=== PATIENT | male | born 1960 | race Caucasian/White ===

== ENCOUNTER 2024-04-10 08:00 | Inpatient (IN) | payer MEDICARE, OTHER, SELFPAY ==
[2024-04-08 14:18] VITALS: BP 162/92
[2024-04-08 15:32] VITALS: BP 146/85; BMI 30.3
[2024-04-08] MEDS: NSS 1000 IV (15:42)
[2024-04-08 15:51] LABS: % Basophils 0.3 % (0-2); % Eosinophils 0.2 % (0-6); % Immature Granulocytes 0.4 % (0-0.5); % Monocytes 4.9 % (1.7-9.3); % Neutrophils 86.2 % (42.2-75.2); Absolute Immature Granulocytes 0.1 10^3/uL (0-0.05); Absolute Lymphocytes 1.1 10^3/uL (1.2-3.4); Absolute Monocytes 0.7 10^3/uL (0.1-0.6); Absolute Neutrophils 11.8 10^3/uL (1.4-6.5); Hematocrit 44.2 % (39.0-52.0); Hemoglobin 15.7 g/dL (13.0-18.0); Mean Corp Hgb Conc. 35.5 g/dL (33.0-37.0); Mean Corpuscular Hgb 31.8 pg (27.0-31.0); Mean Corpuscular Volume 89.5 fL (80.0-94.0); Mean Platelet Volume 9.9 fL (7.4-10.4); Nucleated Red Blood Cells % 0 % (-); Platelet Count 198 10^3/uL (130-400); Red Blood Cell Count 4.94 10^6/uL (4.70-6.10); Red Cell Dist. Width 12.8 % (11.5-14.5); White Blood Cell Count 13.7 10^3/uL (4.8-10.8)
[2024-04-08 16:03] LABS: Lactic Acid 1.3 mmol/L (0.7-2.0)
[2024-04-08 16:11] LABS: ALT (SGPT) 30 U/L (0-50); AST (SGOT) 26 U/L (17-59); Albumin 3.9 g/dl (3.5-5.0); Alkaline Phosphatase 56 U/L (38-126); Blood Urea Nitrogen 26 mg/dl (9-20); Calcium 9.5 mg/dl (8.4-10.2); Carbon Dioxide 23 mmol/L (22-30); Chloride 104 mmol/L (98-107); Estimated Creatinine Clearance 80 ml/min; Glucose 107 mg/dl (70-99); Potassium 4.4 mmol/L (3.5-5.1); Sodium 138 mmol/L (135-145); Total Bilirubin 2.7 mg/dl (0.2-1.3); Total Protein 6.7 g/dl (6.3-8.2); eGFR > 60.00
--- NOTE | 2024-04-08 16:43 | ED.GENMED ---
History of Present Illness
<Jeffry Gaston Jr., PA-C - Last Filed: 04/08/24 19:14>
General
Chief Complaint: Musculo-Skeletal Complaint
Source: patient
Exam Limitations: none
Time Seen by Provider: 04/08/24 15:06
Nursing documentation reviewed up to this point in time: agreed with
Travel History
Have you had any contact with someone who has COVID-19?: No
Do you have any symptoms of coronavirus? Fever > 100 degrees, chills, cough, shortness of breath, sore throat, loss of taste or smell, muscle aches, or headache?: No
History of Present Illness
History of Present Illness:
63-year-old male past medical history of hypertension hyperlipidemia presenting to the emergency department today with concerns of redness swelling and warmth to the right leg starting over the past day. Had an episode of vomiting which is since
resolved but noticed worsening redness and swelling. Also noticed a fever yesterday. No ongoing vomiting.
Review of Systems
<Jeffry Gaston Jr., PA-C - Last Filed: 04/08/24 19:14>
Review of Systems
Allergies reviewed?: Yes
All Other Systems: ROS reviewed and negative except as documented in HPI and ROS
Phy Exam
<Jeffry Gaston Jr., PA-C - Last Filed: 04/08/24 19:14>
Physical Exam
Physical Exam:
GENERAL: Alert , in no apparent distress
EYE: pupils equal and reactive
NECK: Supple, no significant adenopathy.
ENT: o/p clr, mmm.
CARDIAC: Regular rate and rhythm .
LUNGS: Clear breath sounds bilaterally, no acute respiratory distress, no wheezes/rales/rhonchi
ABDOMEN: Soft, without focal tenderness, no r/g, no cvat
NEUROLOGICAL: Alert and oriented, no focal neuro deficits
SKIN: Circumscribed redness swelling warmth without fluctuance or induration to the right daniels that encompasses majority of the area between the knee and the ankle it does not cross the joint. Upon arrival borderline tachycardia of 100 afebrile
repeated temperature of nine 9.4 but heart rate improving after receiving fluids white blood cell count of 13.7. Lactic acid normal level. Warm and dry, skin intact.
MUSCULOSKELETAL: No edema, well perfused.
PSYCH: Normal and appropriate interaction.
Course
<Jeffry Gaston Jr., BIJU - Last Filed: 04/08/24 19:14>
Orders/Labs/Results
Orders:
Orders
04/08/24 14:17
US Periph Venous LOWER Ext RT Urgent
Comment:
Reason For Exam: redness, swelling
04/08/24 15:34
0.9% Sodium Chloride 1000 ml [Nss] 1,000 ml IV BOLUS
CR Leg Tibia/fibula Right 2 Vw Urgent
Comment:
Reason For Exam: right daniels swelling pain
04/08/24 15:39
CBC/With Diff [Complete Blood Count/With Diff] Urgent
CMP [Comprehensive Metabolic Panel] Urgent
Lactic Acid Urgent
Blood Culture Q1M
YIFAN Source: Blood/Venous
Specimen Description:
Blood Culture Q1M
YIFAN Source: Blood/Venous
Specimen Description:
04/08/24 16:34
CeFAZolin 2 GRAM [Ancef] 2 grams in 10 ml IV NOW
Abnormal Lab Results
04/08/24
15:39
WBC 13.7 H 10^3/uL
(4.8-10.8)
MCH 31.8 H pg
(27.0-31.0)
Abs Immat Gran (auto) 0.1 H 10^3/uL
(0-0.05)
Absolute Neuts (auto) 11.8 H 10^3/uL
(1.4-6.5)
Absolute Lymphs (auto) 1.1 L 10^3/uL
(1.2-3.4)
Absolute Monos (auto) 0.7 H 10^3/uL
(0.1-0.6)
Neutrophils % 86.2 H %
(42.2-75.2)
Lymphocytes % 8.0 L %
(20.5-51.1)
BUN 26 H mg/dl
(9-20)
Glucose 107 H mg/dl
(70-99)
Total Bilirubin 2.7 H mg/dl
(0.2-1.3)
04/08/24 15:39
04/08/24 15:39
Vital Signs
Initial and Last Documented VS:
Initial Vital Signs
Temp Pulse Resp BP Pulse Ox
98.2 F 100 17 162/92 98
04/08/24 14:18 04/08/24 14:18 04/08/24 14:18 04/08/24 14:18 04/08/24 14:18
Last Documented Vital Signs
Temp Pulse Resp BP Pulse Ox
99.5 F 87 18 137/80 99
04/08/24 17:46 04/08/24 17:46 04/08/24 17:46 04/08/24 17:46 04/08/24 17:46
<Jerel Foy MD - Last Filed: 04/08/24 18:19>
Orders/Labs/Results
Orders:
Orders
04/08/24 14:17
US Periph Venous LOWER Ext RT Urgent
Comment:
Reason For Exam: redness, swelling
04/08/24 15:34
0.9% Sodium Chloride 1000 ml [Nss] 1,000 ml IV BOLUS
CR Leg Tibia/fibula Right 2 Vw Urgent
Comment:
Reason For Exam: right daniels swelling pain
04/08/24 15:39
CBC/With Diff [Complete Blood Count/With Diff] Urgent
CMP [Comprehensive Metabolic Panel] Urgent
Lactic Acid Urgent
Blood Culture Q1M
YIFAN Source: Blood/Venous
Specimen Description:
Blood Culture Q1M
YIFAN Source: Blood/Venous
Specimen Description:
04/08/24 16:34
CeFAZolin 2 GRAM [Ancef] 2 grams in 10 ml IV NOW
Abnormal Lab Results
04/08/24
15:39
WBC 13.7 H 10^3/uL
(4.8-10.8)
MCH 31.8 H pg
(27.0-31.0)
Abs Immat Gran (auto) 0.1 H 10^3/uL
(0-0.05)
Absolute Neuts (auto) 11.8 H 10^3/uL
(1.4-6.5)
Absolute Lymphs (auto) 1.1 L 10^3/uL
(1.2-3.4)
Absolute Monos (auto) 0.7 H 10^3/uL
(0.1-0.6)
Neutrophils % 86.2 H %
(42.2-75.2)
Lymphocytes % 8.0 L %
(20.5-51.1)
BUN 26 H mg/dl
(9-20)
Glucose 107 H mg/dl
(70-99)
Total Bilirubin 2.7 H mg/dl
(0.2-1.3)
04/08/24 15:39
04/08/24 15:39
Vital Signs
Initial and Last Documented VS:
Initial Vital Signs
Temp Pulse Resp BP Pulse Ox
98.2 F 100 17 162/92 98
04/08/24 14:18 04/08/24 14:18 04/08/24 14:18 04/08/24 14:18 04/08/24 14:18
Last Documented Vital Signs
Temp Pulse Resp BP Pulse Ox
99.5 F 87 18 137/80 99
04/08/24 17:46 04/08/24 17:46 04/08/24 17:46 04/08/24 17:46 04/08/24 17:46
<Jeffry Gaston Jr., PA-C - Last Filed: 04/08/24 19:14>
MDM/Problems Addressed
MDM/Problems Addressed:
63-year-old male presenting to the emergency department today with concerns of redness swelling as well as discomfort to the right lower extremity no specific injuries to the area. Walkabout redness and swelling to the right lower leg does not
cross the joint for count of 13.7 heart rate improving after receiving fluids normal lactic acid ultrasound and x-ray without emergent findings concerning the large area and rapid progression of potential cellulitis plan to give IV antibiotics and
monitor in the hospital.
<Jeffry Gaston Jr., PA-C - Last Filed: 04/08/24 19:14>
*Critical Care Note
Total Time (30-74mins, 75-104mins- exclusive of procedures): Not Applicable
ED Attending Note
<Jeffry Gaston Jr., PA-C - Last Filed: 04/08/24 19:14>
-
Portions of this chart may have been created with voice recognition software.� Occasional wrong word or��sound alike� substitutions may have occurred due to the inherent limitations of voice recognition software.
<Jerel Foy MD - Last Filed: 04/08/24 18:19>
ED Attending Note
Patient seen and examined by attending physician: Yes
ED Attending Note:
I have seen and evaluated the patient with a [id number] encounter. I have spoken to the advance practicer provider and involved in the medical history, the physical exam, medical decision making.
Evaluation and management service: agree unless noted differently below.
Results interpretation: agree unless noted differently below.
Focused HPI: 63-year-old male with a past medical history of hypertension, hyperlipidemia who presents to the emergency room with his for evaluation of right lower extremity redness, swelling, pain. Patient reports that he noticed some slight
swelling about 2 days ago, yesterday noticed some small area of redness on the right leg and then today had markedly increased redness and pain. He says yesterday had a low-grade fever. He denies any other complaints. He denies any trauma or
injury to the leg. Apparently has a remote history of DVT, not on blood thinners.
Physical exam: Awake alert not in distress. Hypertensive and tachycardic on arrival but vitals normal on my assessment. He has erythema extending from the tibial tuberosity down just proximal to the ankle on the right leg mostly anterior although
there is some erythema tracking laterally towards the posterior aspect of the calf. Area is warm and tender to the touch but there is no crepitus or induration. He has good strong pulses in the right lower extremity. No knee effusion noted.
Medical Decision Makin-year-old male presents for evaluation of redness, pain, swelling of the right lower extremity in the absence of trauma. Vitals and exam as above. Recent labs including a CBC which showed a leukocytosis to 13.7 with
predominant neutrophils. CMP showed no clinically significant abnormalities. We sent patient for an ultrasound to rule out DVT which was negative. We did send for an x-ray of tib-fib which showed no acute pathology. Concern for severe cellulitis
and given relatively rapid progression will cover with IV antibiotics and admit for management.
Discharge Plan
Departure
Patient Disposition: Admit
Date of Disposition: 04/08/24
Time of Disposition: 19:14
Admit to: Med/Surg
Admit to doctor: Dang
Presentation/result/management discussed w/ accepting MD/DO: Hospitalist
Patient with high blood pressure during this ER visit?: No
Condition: Good
Covid-19: Not Applicable
Discharge Problem:
Cellulitis
Prescriptions:
No Action
tamsulosin [Flomax] 0.4 mg Capsule
0.4 mg PO DAILY
simvastatin 20 mg Tablet
20 mg PO DAILY
finasteride 5 mg Tablet
5 mg PO DAILY
amlodipine-benazepril 10-40 mg Capsule
1 cap PO DAILY
Referrals:
Frank Fall MD [Family Provider] -
Interventions
Interventions:
*Risk Screen - Suicide Last Done: 04/08/24 14:19
*General Assessment Last Done: 04/08/24 14:19
*Neglect/Abuse Screening Last Done: 04/08/24 14:19
*ED COVID-19 Vaccine History Last Done: 04/08/24 14:19
ED-Musculoskeletal Assessment Last Done: 04/08/24 15:33
Discharge Date and Time
Print Language: INDONESIAN
[2024-04-08] MEDS: ANCEF 10 IV (16:59)
[2024-04-08 17:46] VITALS: BP 137/80
--- NOTE | 2024-04-08 18:37 | HPS.HSE ---
Family Physician
-
Family Physician: Frank Fall
Chief Complaint
-
Fever and right leg redness
History of Present Illness
63 y/o male with past medical history of hypertension, hyperlipidemia, BPH, right ankle surgery, and right lower extremity DVT presented with right leg redness starting around lunchtime yesterday. Patient reported fever of 101 F, as well as chills,
at home, and also said he felt a little lightheaded. He had nausea, vomiting and diarrhea all of which resolved yesterday. He denied any pain whatsoever, and reports he has no trouble ambulating.
Medical History
Past Medical History
Past Medical History: Reports Other (As per HPI above)
Past Surgical History: Reports Orthopedic (Right Ankle Surgery)
Social History
Tobacco: Non-smoker
Alcohol: None
Drug: None
Family History
Family History: Not pertinent
Allergies / Home Medications
Allergies reflects when Allergies were last updated in [facility].
Home Medications with original date entered in [facility]
Allergy/Medication List:
Allergies
Allergy/AdvReac Type Severity Reaction Status Date / Time
bacitracin Allergy Unknown Verified 04/08/24 14:18
[From Polysporin(bacitracin
base)]
polymyxin B Allergy Unknown Verified 04/08/24 14:18
[From Polysporin(bacitracin
base)]
Home Medications
amlodipine 10 mg-benazepril 40 mg capsule 1 cap PO DAILY 04/08/24
esomeprazole magnesium 20 mg capsule,delayed release (Nexium) 20 mg PO DAILY 04/08/24
finasteride 5 mg tablet 5 mg PO DAILY 04/08/24
simvastatin 20 mg tablet 20 mg PO DAILY 04/08/24
tamsulosin 0.4 mg capsule (Flomax) 0.4 mg PO DAILY 04/08/24
Review of Systems
-
A 12 point ROS was completed and negative except as noted: Yes
Physical Exam
Vital Signs
Vital Signs
Temp Pulse Resp BP Pulse Ox
99.5 F 87 18 137/80 99
04/08/24 17:46 04/08/24 17:46 04/08/24 17:46 04/08/24 17:46 04/08/24 17:46
Physical Exam
General: No Apparent Distress, Comfortable and Conversant
HEENT: NormoCephalic and Moist mucous membranes
Respiratory: Clear
Cardiac: S1/S2 and Regular Rhythm
GI: Soft, Non Tender and Normal Bowel Sounds
Skin: Other (Right lower extremity erythema on daniels and partly on calf. No purulence. No tenderness. RLE distal pulses 2+.)
Neuro: Awake, Alert, AO x 3 and Nonfocal/grossly intact
Psych: Calm and Intact Judgment/Insight
Laboratory Results
-
04/08/24 15:39
04/08/24 15:39
Laboratory Results
Lactic Acid 1.3 mmol/L (0.7-2.0) 04/08/24 15:39
Total Bilirubin 2.7 mg/dl (0.2-1.3) H 04/08/24 15:39
AST 26 U/L (17-59) 04/08/24 15:39
ALT 30 U/L (0-50) 04/08/24 15:39
Alkaline Phosphatase 56 U/L (38-126) 04/08/24 15:39
Impression/Plan
-
Assessment/Plan
RLE cellulitis
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
-Continue Cefazolin
-Check MRSA, follow blood cultures
-US with no DVT
-X-Ray with no acute changes but did show old fracture
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
-Had these symptoms on the day prior to arrival
-Such symptoms have now resolved
-Continue to monitor
Hypertension
-Continue home Amlodipine-Benazepril
Hyperlipidemia
-Continue home Simvastatin or equivalent
BPH
-Continue Finasteride and Tamsulosin
History of RLE DVT
History of Right Ankle Surgery
DVT PPx: Lovenox
Code Status: Full Code
[2024-04-08 20:16] VITALS: BP 161/90
--- NOTE | 2024-04-08 20:24 | EDRN ---
Pt with temperature of 101.6 when sending patient upstairs to Rm [id number]. No PRN order for Tylenol seen in patients chart. SAM Balderas notified via [employer], will place Tylenol order. Pt sent to floor, 3W staff made aware.
[2024-04-08 20:36] VITALS: BP 176/95; BMI 31.2
[2024-04-08] MEDS: TYLENOL 650 MG PO (20:39)
[2024-04-08] MEDS: LOVENOX 40 MG SC (21:02)
[2024-04-08 23:00] VITALS: BP 130/86
[2024-04-08] MEDS: ANCEF 5 IV (23:00)
[2024-04-09] MEDS: TYLENOL 650 MG PO ×3 (05:14→20:07)
[2024-04-09 06:33] LABS: % Basophils 0.2 % (0-2); % Immature Granulocytes 0.5 % (0-0.5); % Neutrophils 88.3 % (42.2-75.2); Absolute Immature Granulocytes 0.1 10^3/uL (0-0.05); Absolute Lymphocytes 0.7 10^3/uL (1.2-3.4); Absolute Monocytes 0.6 10^3/uL (0.1-0.6); Absolute Neutrophils 10.5 10^3/uL (1.4-6.5); Hematocrit 44.8 % (39.0-52.0); Hemoglobin 15.4 g/dL (13.0-18.0); Mean Corp Hgb Conc. 34.4 g/dL (33.0-37.0); Mean Corpuscular Hgb 31.5 pg (27.0-31.0); Mean Corpuscular Volume 91.6 fL (80.0-94.0); Mean Platelet Volume 10.8 fL (7.4-10.4); Nucleated Red Blood Cells % 0 % (-); Platelet Count 184 10^3/uL (130-400); Red Blood Cell Count 4.89 10^6/uL (4.70-6.10); Red Cell Dist. Width 12.8 % (11.5-14.5); White Blood Cell Count 11.9 10^3/uL (4.8-10.8)
[2024-04-09 07:03] LABS: Blood Urea Nitrogen 18 mg/dl (9-20); Calcium 8.7 mg/dl (8.4-10.2); Carbon Dioxide 21 mmol/L (22-30); Chloride 107 mmol/L (98-107); Estimated Creatinine Clearance 105 ml/min; Glucose 111 mg/dl (70-99); Potassium 4.1 mmol/L (3.5-5.1); Sodium 135 mmol/L (135-145); eGFR > 60.00
[2024-04-09 07:20] VITALS: BP 148/88
[2024-04-09] MEDS: ANCEF 5 IV (08:07)
[2024-04-09] MEDS: NORVASC 10 MG PO (08:08)
[2024-04-09] MEDS: LIPITOR 10 MG PO (08:08)
[2024-04-09] MEDS: PROSCAR 5 MG PO (08:08)
[2024-04-09] MEDS: PROTONIX 40 MG PO (08:08)
[2024-04-09] MEDS: ZESTRIL 10 MG PO (08:08)
[2024-04-09] MEDS: FLOMAX 0.400000000000000022 MG PO (08:08)
--- NOTE | 2024-04-09 13:33 | W.PN.HOSP.TC ---
Today's Communication/Plan
-
see A/P
Assessment / Plan
Assessment / Plan
HPI: 63 y/o male with past medical history of hypertension, hyperlipidemia, BPH, right ankle surgery, and right lower extremity DVT; presented with right leg redness. Patient reported fever of 101 F, as well as chills at home, and also said he felt
a little lightheaded. He had nausea, vomiting and diarrhea all of which resolved. He denied any pain, reported no trouble ambulating.
A/P:
# sepsis POA due to RLE cellulitis
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
RLE US neg for DVT
X-Ray with no acute changes but did show old fracture
Continue Cefazolin
follow blood cultures
# Nausea/Vomiting/Diarrhea likely related to sepsis, resolved
# Hypertension
Continue home Amlodipine-Benazepril
# Hyperlipidemia
Continue home Simvastatin or equivalent
# BPH
Continue Finasteride and Tamsulosin
# History of RLE DVT
# History of Right Ankle Surgery
DVT PPx: Lovenox
Code Status: Full Code
Anticipated Discharge: Within 24 hours
Subjective/Interval History
-
Date of Service: April 09, 2024
Objective Data
-
Labs:
Laboratory Results
04/09/24
05:11
WBC 11.9 H
Hgb 15.4
Hct 44.8
Plt Count 184
Sodium 135
Potassium 4.1
Chloride 107
Carbon Dioxide 21 L
BUN 18
Creatinine 0.9
Glucose 111 H
Calcium 8.7
Vital Signs:
Vital Signs
Temp Pulse Resp BP Pulse Ox
37.1 C 95 16 148/88 92
04/09/24 07:20 04/09/24 07:20 04/09/24 07:20 04/09/24 07:20 04/09/24 07:20
I&O
04/08/24 04/09/24 04/10/24
06:59 06:59 06:59
Intake Total 480 / 480 960 / 960
Balance 480 / 480 960 / 960
Review of Systems
-
Skin: Reports Rash (RLE )
Physical Exam
-
General: Well Developed, Well Nourished, No Apparent Distress, Comfortable and Conversant; Negative Respiratory Distress
HEENT: Normocephalic, Atraumatic, Nose Appears Normal and Ears Appear Normal; Negative Oxygen
Respiratory: Clear to Auscultation and Non Labored Respirations; Negative Accessory Resp Muscle Use
Cardiac: Regular Rhythm and S1/S2
GI: Soft, Nontender, Nondistended and Normal Bowel Sounds
Musculoskeletal: Edema, Right Lower Extrem
Skin: Warm, Dry and Other (RLE erythema)
Neuro: Awake and Alert
Psych: Calm and Intact Judgement/Insight
Data Reviewed
-
Ultrasound: Report Reviewed by me
Labs: Labs Reviewed by me
--- NOTE | 2024-04-09 15:22 | WOUNDNOTE ---
JASPER RN note: Patient admitted with Cellulitis of R leg.
See H&P for complete history.
PMH: R ankle surgery 2016, DVT,HTN.
Wound Location and type/assessment: Patient admitted with: R lower leg with resolving redness and edema. + pulses audible with Doppler. Leg elevated on pillow. Heels intact, no wounds on R leg.
Appetite: Good.
Pressure redistribution devices in place: On Air mattress, can be on Accumax.
Plan: Leg elevation. Instructed patient how to elevate leg when sitting in chair. Confirmed with hospitalist, will sign off.
[2024-04-09 15:45] VITALS: BP 136/80
--- NOTE | 2024-04-09 16:21 | CM ---
Alert awake oriented patient who lives with his Rosy who lives in a 2 story home with 1 step to enter and 10 steps to bed and bathroom. He is independent in driving working and all activities of daily living.OSEI letter copy given explained and
pt declined to sign.Osei copy omn chart.
No VN hx /No SNF hx
Pharmacy [facility] [address]
PCP DR Fall
PLAN Home no anticipated needs
[2024-04-09] MEDS: ANCEF 10 IV ×2 (17:38→23:16)
[2024-04-09] MEDS: LOVENOX 40 MG SC (17:38)
[2024-04-09 23:39] VITALS: BP 132/84
[2024-04-10 00:34] LABS: Hepatitis C Antibody Negative (Negative)
[2024-04-10 05:43] LABS: % Basophils 0.3 % (0-2); % Eosinophils 0.9 % (0-6); % Immature Granulocytes 0.6 % (0-0.5); % Lymphocytes 12.2 % (20.5-51.1); Absolute Eosinophils 0.1 10^3/uL (0-0.7); Absolute Immature Granulocytes 0.1 10^3/uL (0-0.05); Absolute Lymphocytes 1.4 10^3/uL (1.2-3.4); Absolute Monocytes 1.2 10^3/uL (0.1-0.6); Absolute Neutrophils 8.8 10^3/uL (1.4-6.5); Hemoglobin 14.8 g/dL (13.0-18.0); Mean Corp Hgb Conc. 35.2 g/dL (33.0-37.0); Mean Corpuscular Hgb 31.5 pg (27.0-31.0); Mean Corpuscular Volume 89.4 fL (80.0-94.0); Mean Platelet Volume 10.3 fL (7.4-10.4); Nucleated Red Blood Cells % 0 % (-); Platelet Count 178 10^3/uL (130-400); Red Cell Dist. Width 12.6 % (11.5-14.5); White Blood Cell Count 11.6 10^3/uL (4.8-10.8)
[2024-04-10 06:12] LABS: Blood Urea Nitrogen 15 mg/dl (9-20); Calcium 8.9 mg/dl (8.4-10.2); Carbon Dioxide 24 mmol/L (22-30); Chloride 103 mmol/L (98-107); Estimated Creatinine Clearance 86 ml/min; Glucose 101 mg/dl (70-99); Potassium 4.2 mmol/L (3.5-5.1); Sodium 135 mmol/L (135-145); eGFR > 60.00
[2024-04-10 07:00] VITALS: BP 113/77
[2024-04-10] MEDS: LIPITOR 10 MG PO (07:42)
[2024-04-10] MEDS: FLOMAX 0.400000000000000022 MG PO (07:42)
[2024-04-10] MEDS: ANCEF 10 IV (07:42)
[2024-04-10] MEDS: PROSCAR 5 MG PO (07:42)
[2024-04-10] MEDS: PROTONIX 40 MG PO (07:42)
[2024-04-10] MEDS: ZESTRIL 10 MG PO (07:42)
[2024-04-10] MEDS: NORVASC 10 MG PO (07:42)
[2024-04-10 09:38] VITALS: BP 136/83; PULSE 84; O2SAT 95
--- NOTE | 2024-04-10 09:50 | PTOTSP ---
Patient demonstrates safe and independent mobility including stairs, no skilled physical therapy needs at this time.
--- NOTE | 2024-04-10 10:53 | W.PN.HOSP.TC ---
Addendum entered and electronically signed by Queenie Cohen MD 04/10/24 14:45:
total DC time 35 min
Original Note:
Today's Communication/Plan
-
see AP
Assessment / Plan
Assessment / Plan
HPI: 63 y/o male with past medical history of hypertension, hyperlipidemia, BPH, right ankle surgery, and right lower extremity DVT; presented with right leg redness. Patient reported fever of 101 F, as well as chills at home, and also said he felt
a little lightheaded. He had nausea, vomiting and diarrhea all of which resolved. He denied any pain, reported no trouble ambulating.
A/P:
# sepsis POA due to RLE cellulitis
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
RLE US neg for DVT
X-Ray with no acute changes but did show old fracture
blood cultures negative
Change IV Ancef to PO Keflex and doxycycline upon discharge, would continue for 2 weeks , Can take probiotic with Abx
# Nausea/Vomiting/Diarrhea likely related to sepsis, resolved
# Hypertension
Continue home Amlodipine-Benazepril
# Hyperlipidemia
Continue home Simvastatin or equivalent
# BPH
Continue Finasteride and Tamsulosin
# History of RLE DVT
# History of Right Ankle Surgery
DVT PPx: Lovenox
Code Status: Full Code
DW at bedside
Anticipated Discharge: Today
Subjective/Interval History
-
Date of Service: April 10, 2024
Objective Data
-
Labs:
Laboratory Results
04/10/24
05:22
WBC 11.6 H
Hgb 14.8
Hct 42.0
Plt Count 178
Sodium 135
Potassium 4.2
Chloride 103
Carbon Dioxide 24
BUN 15
Creatinine 1.1
Glucose 101 H
Calcium 8.9
Vital Signs:
Vital Signs
Temp Pulse Resp BP Pulse Ox
37.0 C 84 18 113/77 93
04/10/24 07:00 04/10/24 07:00 04/10/24 07:00 04/10/24 07:00 04/10/24 07:00
I&O
04/09/24 04/10/24 04/11/24
06:59 06:59 06:59
Intake Total 480 / 480 1680 / 1680
Balance 480 / 480 1680 / 1680
Review of Systems
-
Skin: Reports Rash (RLE rash improving)
Physical Exam
-
General: Well Developed, Well Nourished, No Apparent Distress, Comfortable and Conversant; Negative Respiratory Distress
HEENT: Normocephalic, Atraumatic, Nose Appears Normal and Ears Appear Normal; Negative Oxygen
Respiratory: Clear to Auscultation and Non Labored Respirations; Negative Accessory Resp Muscle Use
Cardiac: Regular Rhythm and S1/S2
GI: Soft, Nontender, Nondistended and Normal Bowel Sounds
Musculoskeletal: Edema, Right Lower Extrem
Skin: Warm, Dry and Other (RLE erythema)
Neuro: Awake and Alert
Psych: Calm and Intact Judgement/Insight
Data Reviewed
-
Ultrasound: Report Reviewed by me
Labs: Labs Reviewed by me
--- NOTE | 2024-04-10 11:17 | CM ---
MD entered order for discharge.
UR RN notified pt changed to in patient .
Reviewed IMM with Rosy and pt. All questions answered. IMM on chart.They agree with discharge.
Offered VN he declined need.
Rosy will drive him home.
PLAN Home no needs
[2024-04-10] MEDS: PREVNAR 20 0.5 ML IM (11:54)
[2024-04-10 12:06] VITALS: BP 150/90
--- NOTE | 2024-04-10 14:39 | W.DCSUMMARY ---
Discharge Summary
Discharge Data
Date of Admission: 04/08/24
Date of Discharge: 04/10/24
-
Pending Results: No
Hospital Course
Principal Diagnosis:
sepsis due to right leg cellulitis
Chronic Diagnoses:�
Hypertension
Hyperlipidemia
Benign prostate hypertrophy
History of Right leg deep vein thrombosis
History of Right Ankle Surgery
Consultations:�
None
Procedures:�
None
Clinical course:�
This is a 63 year old male with past medical history as stated above, who presented with right leg redness and swelling. He also reported fever as high as 101 F at home.
Problem 1:
Sepsis due to RLE cellulitis.
His RLE US was negative for DVT.
His R leg X-Ray showed no acute changes but did show old fracture.
His blood cultures were negative.
He received IV Ancef while in the hospital, and was discharged with oral Keflex and doxycycline for 14 weeks.
He can take probiotic with antibiotic.
As for the rest of his medical problems, they were stable during his hospital stay.
Discharge Plan
-
Patient Disposition: Home (Routine Discharge)
Discharge Diagnosis/Procedures: right leg cellulitis
Condition: Good
Diet: As tolerated and Low Sodium
Activity: As tolerated
Driving Restrictions: Not until seen by your Dr
Referrals:
Frank Fall MD [Family Provider] - in less than 1 week
Additional Discharge Medication Instructions: Continue to take Keflex and doxycycline for 2 weeks.
Avoid sun exposure and dairy product while on doxycycline.
You can take probiotic with antibiotic.
Prescriptions:
New
cephalexin 500 mg capsule
500 mg PO Q6H 14 Days Qty: 56 0RF
doxycycline hyclate 100 mg capsule
100 mg PO BID 14 Days Qty: 28 0RF
Probiotic 3 billion cell capsule
3,000 mmu cells PO DAILY 14 Days Qty: 14 0RF
Continued
tamsulosin [Flomax] 0.4 mg Capsule
0.4 mg PO DAILY
simvastatin 20 mg Tablet
20 mg PO DAILY
finasteride 5 mg Tablet
5 mg PO DAILY
amlodipine-benazepril 10-40 mg Capsule
1 cap PO DAILY
esomeprazole magnesium [Nexium] 20 mg Capsule,Delayed Release(Dr/Ec)
20 mg PO DAILY
Discharge Orders:
Discharge Patient (As Directed); Ordered 04/10/24
Ordered By: Queenie Cohen
Discharge Date and Time
Discharge Date/Time: 04/10/24 12:19
Print Language: MONEGASQUE
== END 2024-04-10 12:19 | disposition home or self-care (01) | DRG 872 ==
LOC: ED 08:00
PROVIDERS: Internal Medicine; Physician Assistant; ADMITTING PHYSICIAN Hospitalist; EMERGENCY PHYSICIAN Emergency Medicine; FAMILY PHYSICIAN Family Medicine
PROC: 3E0234Z Introduction of Serum, Toxoid and Vaccine into Muscle, Percutaneous Approach (ICD-10-PCS; 2024-04-10)
DX: A41.9 Sepsis, unspecified organism (principal); L03.115 Cellulitis of right lower limb; E78.5 Hyperlipidemia, unspecified; I10 Essential (primary) hypertension; N40.0 Benign prostatic hyperplasia without lower urinary tract symptoms; Z88.1 Allergy status to other antibiotic agents; Z86.718 Personal history of other venous thrombosis and embolism; Z23 Encounter for immunization
CPT/HCPCS: 73590; 80048; 80053; 83605; 85025; 86803; 87040; 87070; 90677; 93971; 96361; 96374; 97161; 99285; G0009; G0378